=== PATIENT | female | born 1945 | race Caucasian/White ===

== ENCOUNTER → 2017-07-29 | Outpatient (REF) | LOC: ZLAB.WCH 17:53 | DX: Z01.89 Encounter for other specified special examinations (principal) ==

== ENCOUNTER 2023-05-09 16:32 | Inpatient (IN) | payer MEDICARE, BC ==
[~2023-05-09] VITALS: Ht 165.1 cm; Wt 65.9 kg
[2023-05-09 17:00] VITALS: BP_SYST 164
[2023-05-09] MEDS ORDERED: *Potassium Replacement Protocol MC SCH (17:00)
[2023-05-09 17:07] VITALS: BP 164/78; PULSE 85; TEMP 98
[2023-05-09] MEDS ORDERED: NASACORT OTC NAS (17:31)
[2023-05-09] MEDS ORDERED: SYNTHROID0.05 MG/TA PO (17:32)
[2023-05-09] MEDS ORDERED: COZAAR100 MG PO (17:33)
[2023-05-09] MEDS ORDERED: HCTZ12.5TAB PO (17:33)
[2023-05-09] MEDS ORDERED: LIPITOR20 MG PO (17:34)
[2023-05-09] MEDS ORDERED: TOPROL XL100 MG PO (17:34)
[2023-05-09] MEDS ORDERED: MAGNESIUM250 M1 PO (17:35)
[2023-05-09] MEDS ORDERED: CALCIUM CITRAT950 MG PO (17:37)
[2023-05-09] MEDS ORDERED: ZYRTEC 10MG10 MG PO (17:37)
[2023-05-09] MEDS ORDERED: hydrALAZINE 20 MG/ML 1 ML VIAL IV PRN (17:45)
[2023-05-09 19:40] LABS: CALCIUM 9.5 mg/dL (8.4-10.2); CREATININE, serum 1.61 mg/dL (0.57-1.11); POTASSIUM 3.4 mmol/L (3.5-4.5)
--- NOTE | 2023-05-09 19:43 | NUR ---
Patient admitted to unit around 1700. Arrived with as direct admit from PCP office. Gait is steady. Skin is intact, no variances noted. Slight swelling noted to bilateral ankles, no pitting noted. Left upper extremity restricted due to history of breast cancer with left mastectomy. IV started to right hand. Telemetry on. Tolerating food and fluids well. Complains of ongoing cough and shortness of breath since Covid in Decemeber. Patient resting in bed with call light in reach, all needs met at this time.
[2023-05-09] MEDS ORDERED: Potassium Bicarbonate/Citrate 20 MEQ Effervescent TAB PO SCH (20:00)
[2023-05-09 20:08] VITALS: BP 128/63; PULSE 95; TEMP 98.2
[2023-05-09 20:30] VITALS: BP_SYST 176
--- NOTE | 2023-05-09 20:30 | NUR ---
Initial shift assessment done- VSS, o2 sats 93% on RA, pt states does feel SOB at times, denies pain, tele on NSR, Potassium protocol followed for potassium level of 3.4. Undestands to call for assistance if needed- steady on feet at this time.
[2023-05-09 22:20] VITALS: BP 176/70; PULSE 88
--- NOTE | 2023-05-09 22:20 | NUR ---
Pt would like her B/P recheck by me, did use machine 182/74, did use a manual cuff and was 176/70-- will give the hydralazine IV as ordered prn at this time. Pt also concerned about her productive cough- sputum greenish colored, states does feel SOB , o2 sats 92% on RA. Will let the Dav NDIAYE know.
[2023-05-09 23:13] VITALS: BP 164/84; PULSE 88; TEMP 97.4
[2023-05-10] VITALS (14 sets, daily range): BP systolic 126–188; BP diastolic 61–94; PULSE 92–111; TEMP 97.4–99.6
--- NOTE | 2023-05-10 01:00 | NUR ---
Did talk to Dav NDIAYE about pt concerns regarding increased creatinine and productive cough with green sputum, also o2 sats 91-92% on RA but pt feels SOB, orders for sputum culture and CXR in AM, will not put on IV fluids at this time due to increased B/P- Pt is getting Hydralazine IV for SBP > 170.
--- NOTE | 2023-05-10 06:02 | NUR ---
Did get some sleep last night,, B/P 150,s systolic, o2 at 2L/nc with sats 95%.
--- NOTE | 2023-05-10 08:00 | NUR ---
Patient is resting in bed, alert and oriented x 4. Has questions about the function of her kidneys. States some SOB, sputum collected. Assessment completed, no further needs at this time. Call light within reach.
--- NOTE | 2023-05-10 09:15 | NUR ---
PATIENT SITTING UP IN BED A&OX4, MORNING ASSESSMENT COMPLETED PLEASE CHART. PRODUCTIVE COUGH NOTED, PATIENT STATED SHE IS HAVING SOME SOA 2L NC ON 02 97%, PATIENT STATES WHEN SHE COUGHS HER PAIN IS ABOUT A 9/10, NO OTHER ACUTE CONCERNS AT THIS TIME, WILL NOTIFY PRIMARY RN.
[2023-05-10 09:34] LABS: BASO # 0.1 K/mm3 (0.0-0.2); BASO % 0.5 % (0.0-2.0); EOS # 0.1 K/mm3 (0.0-0.7); EOS % 0.6 % (0.0-4.0); GRAN # 7.4 K/mm3 (1.4-6.5); GRAN % 68.8 % (42.2-75.2); HEMOGLOBIN 12.3 g/dl (12.5-16.0); LYMPH % 18.3 % (20.0-51.0); MEAN CELL VOLUME 85 fl (80.0-100.0); MEAN CORPUSCULAR HEMOGLOBIN 30 pg (27-31); MEAN CORPUSCULAR HGB CONC 35 g/dl (33.0-37.0); MEAN PLATELET VOLUME 10.1 fl (7.4-10.4); MONO # 1.2 K/mm3 (0.1-0.6); MONO % 11.4 % (1.7-9.3); PLATELET COUNT 288 K/mm3 (130-400); RED BLOOD COUNT 4.09 M/mm3 (4.10-5.30); REDCELL DISTRIBUTION WIDTH-CV 13.4 % (11.5-14.5)
[2023-05-10 09:36] LABS: HEMATOCRIT 34.9 % (37.0-47.0)
[2023-05-10 09:41] LABS: ALBUMIN 2.9 gm/dL (3.4-4.8); CALCIUM 9.5 mg/dL (8.4-10.2); CREATININE, serum 1.06 mg/dL (0.57-1.11); PHOSPHOROUS 2.8 mg/dL (2.3-4.7); POTASSIUM 3.7 mmol/L (3.5-4.5)
--- NOTE | 2023-05-10 09:58 | NUR ---
Initial visit attempt; Customer Service Representative Teacher left card offering God's blessings and information regarding the availability of Spiritual Care at our hospital.
--- NOTE | 2023-05-10 11:46 | NUR ---
PT's SBP 180, reported by student. BP rechecked 170/71. PRN Hydralazine provided.
[2023-05-10] MEDS ORDERED: Magnesium Gluconate 500 MG TAB PO SCH (11:57)
[2023-05-10] MEDS ORDERED: Cetirizine 10 MG TAB PO PRN (12:00)
[2023-05-10] MEDS ORDERED: Losartan 50 MG TAB PO SCH (12:15)
[2023-05-10] MEDS ORDERED: Doxycycline Monohydrate 100 MG CAP PO SCH (16:21)
[2023-05-10] MEDS ORDERED: Azithromycin 250 MG TAB PO SCH (16:30)
--- NOTE | 2023-05-10 16:42 | NUR ---
piggery worker met with patient to discuss discharge planning. Patient lives in [place] with her , Jere. P# [phone]. PCP is Dr. Payton, pharmacy [facility]. No issues affording medications. DPOA-HC is [facility]. No DME. Reports to be indpendent with ADLS. Jere transports patient to appointments. No current home health and is not interested in services at this time. Patient would like to discharge home at time of discharge. Discharge plan: Home
[2023-05-10] MEDS ORDERED: predniSONE 20 MG TAB PO SCH (17:00)
[2023-05-10] MEDS ORDERED: Formoterol Neb Soln 20 MCG/2 ML UD IH SCH (19:00)
[2023-05-10] MEDS ORDERED: Budesonide Neb Susp 0.25 MG/2 ML AMP IH SCH (19:00)
[2023-05-10] MEDS ORDERED: Albuterol/Ipratropium 3 MG-0.5 MG/3 ML Neb Soln IH SCH (20:00)
--- NOTE | 2023-05-10 20:30 | NUR ---
PT UP ABOUT ROOM. PLEASANT & COOPERATIVE. ORIENTED X4. C/O SORE THROAT. DIFFICULT TO SWALLOW. SEE SHIFT ASSESSMENT- SORE THROAT. PT HAS HAS THICK GREEN PRODUCTIVE COUGH. TAKING PO ABTIBIOTICS. CALL LIGHT IN REACH. PT INEPENDENT IN ROOM.
[2023-05-10] MEDS ORDERED: Atorvastatin 20 MG TAB PO SCH (21:00)
--- NOTE | 2023-05-10 22:49 | NUR ---
NOTIFIED EVERARDO Robles REGARDING PT'S C/O THROAT SORE HARD TO SWALLOW. SEE NEW ORDER.
[2023-05-10] MEDS ORDERED: Nystatin Oral Susp 100,000 UNITS/ML 5 ML UD PO SCH (23:00)
[2023-05-11] VITALS (14 sets, daily range): BP systolic 109–183; BP diastolic 54–83; PULSE 87–136; TEMP 97.4–98.3
--- NOTE | 2023-05-11 02:58 | NUR ---
REQUESTED PRN TYLENOL ORDER FROM EVERARDO PERSAUD. SEE NEW ORDER.
[2023-05-11] MEDS ORDERED: Acetaminophen 325 MG TAB PO PRN (03:00)
[2023-05-11] MEDS ORDERED: hydroCHLOROthiazide 12.5 MG CAP PO SCH (09:00)
[2023-05-11] MEDS ORDERED: Fluticasone Nasal 50 MCG/Spray 16 GM BOTTLE NS SCH (09:00)
[2023-05-11 09:17] LABS: BASO % 0.3 % (0.0-2.0); GRAN # 9.8 K/mm3 (1.4-6.5); GRAN % 80.6 % (42.2-75.2); HEMATOCRIT 36.2 % (37.0-47.0); HEMOGLOBIN 12.7 g/dl (12.5-16.0); LYMPH # 0.9 K/mm3 (1.2-3.4); LYMPH % 7.7 % (20.0-51.0); MEAN CELL VOLUME 85 fl (80.0-100.0); MEAN CORPUSCULAR HEMOGLOBIN 30 pg (27-31); MEAN CORPUSCULAR HGB CONC 35 g/dl (33.0-37.0); MEAN PLATELET VOLUME 9.7 fl (7.4-10.4); MONO # 1.3 K/mm3 (0.1-0.6); MONO % 10.3 % (1.7-9.3); PLATELET COUNT 384 K/mm3 (130-400); RED BLOOD COUNT 4.26 M/mm3 (4.10-5.30); REDCELL DISTRIBUTION WIDTH-CV 13.5 % (11.5-14.5)
[2023-05-11 09:44] LABS: ALBUMIN 3.2 gm/dL (3.4-4.8); CALCIUM 9.6 mg/dL (8.4-10.2); CREATININE, serum 2.91 mg/dL (0.57-1.11); MAGNESIUM 1.9 mg/dL (1.6-2.6); PHOSPHOROUS 3.6 mg/dL (2.3-4.7); POTASSIUM 3.1 mmol/L (3.5-4.5)
[2023-05-11] MEDS ORDERED: DOXYCYCLINE 10100 MG PO (10:57)
[2023-05-11] MEDS ORDERED: CEFTIN 250250 MG/TAB PO (10:58)
[2023-05-11] MEDS ORDERED: PROAIR HFA0.09 MG/AC IH (10:59)
[2023-05-11] MEDS ORDERED: PREDNISONE10 MG PO (11:00)
[2023-05-11 11:38] LABS: CALCIUM 9.5 mg/dL (8.4-10.2); CREATININE, serum 2.87 mg/dL (0.57-1.11); POTASSIUM 3.1 mmol/L (3.5-4.5)
--- NOTE | 2023-05-11 12:44 | NUR ---
Data: Ice Cream Van Vendor referral by another Ice Cream Van Vendor. Attempted Ice Cream Van Vendor visit twice during Ice Cream Van Vendor rounds. Patient was on her cell phone both attempts. Assessment: Ice Cream Van Vendor visit not completed; no assessment completed. Plan of Care: Chaplains will be available as needed/requested while Patient is admitted to this hospital.
[2023-05-11 13:51] LABS: CALCIUM 9.7 mg/dL (8.4-10.2); CREATININE, serum 3.11 mg/dL (0.57-1.11); POTASSIUM 3.6 mmol/L (3.5-4.5)
[2023-05-11] MEDS ORDERED: NS 1,000 ML IV SCH (14:00)
[2023-05-11] MEDS ORDERED: Potassium Bicarbonate/Citrate 20 MEQ Effervescent TAB PO SCH (14:15)
[2023-05-11] MEDS ORDERED: Heparin 5,000 UNITS/ML 1 ML VIAL SQ SCH (14:59)
--- NOTE | 2023-05-11 17:33 | NUR ---
Patient independent in room. Repeat BMP completed this morning. Patient changed from observation to inpatient. Administered Tylenol for c/o pain under "right rib" and patient reports relief. INT to RW leaking, d/c'd with cath tip intact. #22 started to RFA by Maye Wilson RN x1 attempt. NS started per MD order and infusing without complications.
--- NOTE | 2023-05-11 18:32 | NUR ---
Apresoline administered for high blood pressure. Dr. Catalan aware.
[2023-05-11 19:23] LABS: URINE APPEARANCE CLOUDY (CLEAR/HAZY); URINE BLOOD 1+ (NEGATIVE); URINE COLOR YELLOW (YELLOW); URINE GLUCOSE NEGATIVE (NEGATIVE); URINE KETONE NEGATIVE (NEGATIVE); URINE NITRATE NEGATIVE (NEGATIVE); URINE PROTEIN(semi-quant) 1+ (NEGATIVE); URINE UROBILINOGEN 0.2 E.U/dL (0.2-1.0)
[2023-05-11 19:30] LABS: COLLECTION METHOD CLEAN CATCH
[2023-05-12] VITALS (16 sets, daily range): BP systolic 121–207; BP diastolic 60–95; PULSE 98–113; TEMP 97.6–100.9
--- NOTE | 2023-05-12 00:40 | NUR ---
PT ALERT AND ORIENTED LAYING IN BED AT THE START OF SHIFT, NOT REALLY UP TO EATING DINNER TRAY. VSS, ASSESSED, DYSPNEA AT REST NOTED. PT LAYS TO ONE SIDE OF THE BED IN ORDER TO BE ABLE TO PUT HER FOOT ON THE FLOOR TO HELP WITH SOA/FOOT NEUROPATHY. HEAD OF BED AT 90 DEGREES TO HELP WITH DYSPNEA. RT CONSULTED HAD BREATHING TX THIS NICANOR. ON TELE, JESSICA. IV TO R FA PATENT. NS RUNNNING PER ORDERS. MEDICATED PER EMAR. PAIN RATED 3/10, DENIES FURTHER NEED AT THIS TIME. CALL LIGHT WITHIN REACH.
[2023-05-12 06:42] LABS: HEMOGLOBIN 11.3 g/dl (12.5-16.0); MEAN CELL VOLUME 84 fl (80.0-100.0); MEAN CORPUSCULAR HEMOGLOBIN 30 pg (27-31); MEAN CORPUSCULAR HGB CONC 36 g/dl (33.0-37.0); MEAN PLATELET VOLUME 9.4 fl (7.4-10.4); PLATELET COUNT 351 K/mm3 (130-400); RED BLOOD COUNT 3.79 M/mm3 (4.10-5.30); REDCELL DISTRIBUTION WIDTH-CV 13.2 % (11.5-14.5)
[2023-05-12 06:52] LABS: HEMATOCRIT 31.7 % (37.0-47.0)
[2023-05-12 07:08] LABS: ALBUMIN 2.7 gm/dL (3.4-4.8); CALCIUM 8.8 mg/dL (8.4-10.2); CREATININE, serum 3.56 mg/dL (0.57-1.11); MAGNESIUM 1.7 mg/dL (1.6-2.6); PHOSPHOROUS 3.4 mg/dL (2.3-4.7); POTASSIUM 4.2 mmol/L (3.5-4.5)
[2023-05-12 08:11] LABS: BAND 29 % (0-10); LYMPHOCYTE 6 % (20.0-51.0); METAMYELOCYTE 1 % (0-0); NEUTROPHILS 57 % (42.0-75.2); PLATELET ESTIMATE NORMAL (NORMAL)
[2023-05-12] MEDS ORDERED: cefTRIAXone 1 G in Water For Injection,Sterile 10 ML IV SCH (08:30)
--- NOTE | 2023-05-12 09:20 | NUR ---
Assessment complete. Pt just rec'd breathing treatment. Pt reports cough and requesting cough medication. Dr. Catalan made aware. NS infusing to RFA without s/s complications. Rocephin administered, as ordered, for UTI. Pt reports increased tremors and is tachycardic-possibly due to breathing treatment. Dr. Catalan made aware. Family at bedside.
[2023-05-12] MEDS ORDERED: Benzonatate 100 MG CAP PO PRN (09:30)
[2023-05-12] MEDS ORDERED: cloNIDine 0.1 MG WEEKLY PATCH TD SCH (12:45)
[2023-05-12] MEDS ORDERED: Ipratropium 0.02% Neb Soln 0.5 MG/2.5 ML UD IH SCH (14:00)
--- NOTE | 2023-05-12 15:19 | NUR ---
REFUSED AFTERNOON TX DUE TO VOMITING
--- NOTE | 2023-05-12 21:23 | NUR ---
PT ALERT AND ORIENTED, FORGETFUL AT TIMES, ASKS THE SAME QUESTIONS AFTER PREVIOUSLY DISCUSSED. MILD ANXIETY ABOUT ALL THE DIFFERNT MEDICATION SHE IS GETTING. HS BEEN HYPERTENSIVE SINCE LAST NIGHT. IV TO LEFT FOREARM PATENT FLUIDS RUNNING SLOW.MEDICATED PER EMAR. ASSESSESD, DENIES PAIN. CALL LIGHT WITHIN REACH. DENIES FURTHER NEED.
[2023-05-13] VITALS (12 sets, daily range): BP systolic 106–176; BP diastolic 58–79; PULSE 83–108; TEMP 97.5–98.3
[2023-05-13 06:41] LABS: HEMATOCRIT 37.8 % (37.0-47.0); HEMOGLOBIN 13.1 g/dl (12.5-16.0); MEAN CELL VOLUME 85 fl (80.0-100.0); MEAN CORPUSCULAR HEMOGLOBIN 29 pg (27-31); MEAN CORPUSCULAR HGB CONC 35 g/dl (33.0-37.0); MEAN PLATELET VOLUME 9.4 fl (7.4-10.4); RED BLOOD COUNT 4.46 M/mm3 (4.10-5.30); REDCELL DISTRIBUTION WIDTH-CV 13.5 % (11.5-14.5)
[2023-05-13 06:45] LABS: PLATELET COUNT 539 K/mm3 (130-400)
[2023-05-13 07:18] LABS: ALBUMIN 3.3 gm/dL (3.4-4.8); CALCIUM 9.4 mg/dL (8.4-10.2); CREATININE, serum 3.02 mg/dL (0.57-1.11); MAGNESIUM 1.8 mg/dL (1.6-2.6); PHOSPHOROUS 4.9 mg/dL (2.3-4.7); POTASSIUM 4.5 mmol/L (3.5-4.5)
[2023-05-13 07:31] LABS: BAND 13 % (0-10); LYMPHOCYTE 12 % (20.0-51.0); METAMYELOCYTE 1 % (0-0); NEUTROPHILS 70 % (42.0-75.2)
[2023-05-13 07:32] LABS: PLATELET ESTIMATE INCREASED (NORMAL)
[2023-05-13] MEDS ORDERED: NS 1,000 ML IV SCH (08:45)
--- NOTE | 2023-05-13 09:00 | NUR ---
UPON ENTERING THIS MORNING APPROX 0700 DURING BEDSIDE REPORT PT AT THE SINK WASHING HER HANDS WITH PULLED IV ON SINK. WHEN ASKED WHAT HAPPENED PT REPORTS THAT SHE PULLED IT OUT BECAUSE "IT DIDNT LOOK RIGHT". PT POINTING TO BRUISING AND ERYTHEMA TO RIGHT ARM. THIS NURSE NOTIFIED THE PT THAT SHE HAS ANTIBIOTICS ORDERED AND THAT WE WOULD HAVE TO PLACE ANOTHER ONE. PT SITTING ON BENCH UPON ENTERING, AT BEDSIDE. PT ORIENTED X4 WITH SOME CONFUSED SPEECH ABOUT TREATMENT. VENOUS DURANT NOTED TO RIGHT SIDE OF LOWER LIP. PT DENIES PAIN AT THIS TIME. NONPRODUCTIVE COUGH NOTED. PT HAS A CLONIDINE PATCH TO RIGHT CHEST. 22G IN RIGHT FOREARM PLACED ON 2ND ATTEMPT. PT DENIES NEEDS AT THIS TIME. BED IN LOWEST POSITION, CALL LIGHT IN REACH.
[2023-05-13 14:02] LABS: CALCIUM 8.4 mg/dL (8.4-10.2); CREATININE, serum 2.56 mg/dL (0.57-1.11); POTASSIUM 4.5 mmol/L (3.5-4.5)
--- NOTE | 2023-05-13 20:30 | NUR ---
Initial shift assessment done- states overall is feeling better, VSS, 94% on RA. B/P 137/74 . Tele on NSR 82/min,, IV fluids of NS at 100cc/hr. No requests-
[2023-05-14] VITALS (18 sets, daily range): BP systolic 100–215; BP diastolic 46–91; PULSE 85–104; TEMP 97.6–98.8
--- NOTE | 2023-05-14 05:15 | NUR ---
Did get some sleep last night- woke up somewhat confused around 0100- IV pump was beeping , did reorient fairly quickly-- up to bathroom a couple times- voiding well, B/P very good, no prn hydralazine needed!
[2023-05-14 06:41] LABS: MEAN CELL VOLUME 86 fl (80.0-100.0); MEAN CORPUSCULAR HGB CONC 34 g/dl (33.0-37.0); MEAN PLATELET VOLUME 9.3 fl (7.4-10.4); REDCELL DISTRIBUTION WIDTH-CV 13.6 % (11.5-14.5)
[2023-05-14 06:52] LABS: HEMATOCRIT 31.7 % (37.0-47.0); HEMOGLOBIN 10.9 g/dl (12.5-16.0); MEAN CORPUSCULAR HEMOGLOBIN 29 pg (27-31)
[2023-05-14 06:53] LABS: PLATELET COUNT 370 K/mm3 (130-400)
[2023-05-14 07:03] LABS: ALBUMIN 2.6 gm/dL (3.4-4.8); CALCIUM 8.5 mg/dL (8.4-10.2); CREATININE, serum 2.04 mg/dL (0.57-1.11); MAGNESIUM 1.6 mg/dL (1.6-2.6); PHOSPHOROUS 3.9 mg/dL (2.3-4.7); POTASSIUM 4.7 mmol/L (3.5-4.5)
[2023-05-14 07:30] LABS: BAND 10 % (0-10); LYMPHOCYTE 16 % (20.0-51.0); METAMYELOCYTE 1 % (0-0); NEUTROPHILS 65 % (42.0-75.2); PLATELET ESTIMATE NORMAL (NORMAL)
[2023-05-14] MEDS ORDERED: predniSONE 20 MG TAB PO SCH (09:00)
--- NOTE | 2023-05-14 09:43 | NUR ---
Initial visit; Patient thanked Commercial Door Installer for looking in on her and offering Spiritual Care. [facility] and has good suppport and lots of prayers from the restoration members though thinks it's a good thing to let Commercial Door Installer keep her in her prayers. Commercial Door Installer wished Esther well and will look in on her while she is here.
--- NOTE | 2023-05-14 10:09 | NUR ---
Patient alert and oriented x4. Shift assessment complete. Course sounds noted to left side of lungs. Heart rate noted to be tachycardic and sounds are strong. Patient denies pain or discomfort. Tolerating activity at baseline. IV fluids infusing per orders through left hand IV. Nightime confusion episode noted by overnight RN, but no confusion noted this morning. Call light within reach, all needs met at this time.
--- NOTE | 2023-05-14 15:35 | NUR ---
Patient's SBP noted to be 188 around 1300. PRN Hydralazine administered, upon reassessing SBP 177. BP checked again around 1500 and noted to be 206/46 on right arm. BP checked using right leg and noted to be 215/84. BP taken manually on right arm and was 194/70. Patient denies headache or chest pain. Sclera of eyes noted to be reddened. Patient states she feels antsy. Dr. Catalan notified and verbal orders obtained to stop IVF. IVF stopped, patient resting in bed with call light in reach. at bedside.
--- NOTE | 2023-05-14 16:33 | NUR ---
fruit or nut farm worker was notified by Dr. Catalan during clinical rounds that patient is looking at discharging tomorrow back to her home. Discharge plan: Home
--- NOTE | 2023-05-14 16:59 | NUR ---
Patient's BP continues to be elevated, Dr. Catalan updated with recent BPs. Orders obtained for scheduled PO Hydralazine as well as verbal orders to repeat IV Hydralazine. Education provided to patient.
[2023-05-14] MEDS ORDERED: hydrALAZINE 25 MG TAB PO SCH (17:00)
--- NOTE | 2023-05-14 19:13 | NUR ---
Talked to patient's daughter Felicia per patient request to give update. Felicia's number [phone]. Felicia expressed concern over cognition of both patient and patient's . States they may be confused regarding care, patient thinks social work has been the ones walking her in hallway not PT/OT, and patient has been confused regarding O2 goals. Patient's BP re-assessed and noted to be 191 systolic. Patient still denies hypertension symptoms. Patient handoff complete to evening or night nurse supervisor at this time.
--- NOTE | 2023-05-14 20:30 | NUR ---
Initial shift assessment done--denies pain, tele on- SR, denies SOB, B/P is still borderline high 180,s systolic,, will give Hydralazine at 0 when it is due,, Up to bathroom, steady on feet-
[2023-05-15] VITALS (8 sets, daily range): BP systolic 161–176; BP diastolic 63–76; PULSE 84–107; TEMP 97.4–98.1
--- NOTE | 2023-05-15 06:01 | NUR ---
Was given Hydralazine IV prn dose x2 this shift for increased B/P - Up to bathroom, steady on feet.
[2023-05-15] MEDS ORDERED: amLODIPine 5 MG TAB PO SCH (09:00)
--- NOTE | 2023-05-15 09:00 | NUR ---
Patient is sitting up in chair, alert and oriented x 4, concern about her kidnesy and her hypertension. States she has an appointment tomorrow and wonderes if she will be discharged. Information about new medication was provided by instructor of students in place. HT has been elevated this morinig 170's systolic. Assessment completed, Continue monitoring.
[2023-05-15 09:29] LABS: CREATININE, serum 1.6 mg/dL (0.57-1.11); POTASSIUM 4.2 mmol/L (3.5-4.5)
--- NOTE | 2023-05-15 09:50 | NUR ---
Call received from Critical care about PT HR over 130, pt working right now with PT.
[2023-05-15] MEDS ORDERED: cloNIDine 0.2 MG WEEKLY PATCH TD SCH (10:00)
[2023-05-15] MEDS ORDERED: COZAAR100 MG PO (10:58)
[2023-05-15] MEDS ORDERED: TOPROL XL100 MG PO (10:58)
[2023-05-15] MEDS ORDERED: RT ADVAIR HFA 2312 G IH (11:02)
[2023-05-15] MEDS ORDERED: ZYRTEC 10MG10 MG PO (11:02)
[2023-05-15] MEDS ORDERED: MAGNESIUM250 M1 PO (11:02)
[2023-05-15] MEDS ORDERED: CATAPRES-TTS 20.2 M1 TD (11:02)
[2023-05-15] MEDS ORDERED: APRESOLINE50 MG PO (11:02)
[2023-05-15] MEDS ORDERED: LIPITOR20 MG PO (11:02)
[2023-05-15] MEDS ORDERED: PROTONIX 40MG T40 MG PO (11:02)
--- NOTE | 2023-05-15 11:20 | NUR ---
Removed Catapress patch .1mg to right chest wall. New order of Catapress .2mg topical patch initiated, see EMAR.
--- NOTE | 2023-05-15 11:26 | NUR ---
cafe worker Jaye and Social Work student Naty met with pt to discuss Important Message from Medicare form. Pt understood and signed form. Discharge plan: Home
--- NOTE | 2023-05-15 12:30 | NUR ---
GUS studentrose, provided a copy of the signed important message from Medicare to patient, placed original in patient's chart. GUS asked patient about home health services. Patient declined services at this time. Discharge plan: Home
--- NOTE | 2023-05-15 17:20 | NUR ---
Pt was provided with discharge information, all questions answered, IV access and telemetry were discontinued. Pt's grandsone picked up patient and her .
[2023-05-15 22:35] LABS: C-ANCA 33 U/mL (0-99)
== END 2023-05-15 16:00 | disposition home or self-care (01) | DRG 304 ==
LOC: MEDICAL 16:32
PROVIDERS: Internal Medicine; Internal Medicine Nephrology; ADMIT Internal Medicine
DX: I16.1 Hypertensive emergency (principal); J18.9 Pneumonia, unspecified organism; N17.9 Acute kidney failure, unspecified; N39.0 Urinary tract infection, site not specified; E87.1 Hypo-osmolality and hyponatremia; R05.3 Chronic cough; K44.9 Diaphragmatic hernia without obstruction or gangrene; M54.50 Low back pain, unspecified; J43.9 Emphysema, unspecified; M81.0 Age-related osteoporosis without current pathological fracture; I10 Essential (primary) hypertension; Z86.16 Personal history of COVID-19; Z85.3 Personal history of malignant neoplasm of breast; Z90.10 Acquired absence of unspecified breast and nipple; Z79.890 Hormone replacement therapy; Z79.899 Other long term (current) drug therapy; Z87.891 Personal history of nicotine dependence; Z23 Encounter for immunization
CPT/HCPCS: G0378; G0379; J0360; J0696; J1644; J7030; J7512; Q3014

== ENCOUNTER → 2023-07-16 | Outpatient (CLI) | payer BC ==
[~2023-07-16] MED LIST: APRESOLINE50 MG PO; CALCIUM CITRAT950 MG PO; CATAPRES-TTS 20.2 M1 TD; CEFTIN 250250 MG/TAB PO; COZAAR100 MG PO; DOXYCYCLINE 10100 MG PO; HCTZ12.5TAB PO; LIPITOR20 MG PO; MAGNESIUM250 M1 PO; NASACORT OTC NAS; PREDNISONE10 MG PO; PROAIR HFA0.09 MG/AC IH; PROTONIX 40MG T40 MG PO; RT ADVAIR HFA 2312 G IH; SYNTHROID0.05 MG/TA PO; TOPROL XL100 MG PO; ZYRTEC 10MG10 MG PO
== END ==
LOC: COL.RAD 14:38
DX: I70.1 Atherosclerosis of renal artery (principal)